=== PATIENT | female | born 2000 | race Caucasian/White ===

== ENCOUNTER 2020-02-22 17:10 | Emergency (ER) | payer BC, SELFPAY ==
[2020-02-22 17:16] VITALS: BP 114/69; PULSE 90; RESP 16; TEMP 37.2; O2SAT 98
--- NOTE | 2020-02-22 17:32 | ED.URI ---
HPI - URI/Sore Throat General Chief Complaint: Ear Stated Complaint: sore throat Time Seen by Provider: 02/22/20 17:22 Source: patient and RN notes reviewed Mode of arrival: ambulatory Limitations: no limitations History of Present Illness HPI Narrative: Patient presents today complaining of a 3-day history of sore throat, temperature up to 100, bilateral ear pain. Denies cough, congestion, rhinorrhea, nausea, vomiting, diarrhea, loss of taste or smell. Denies known sick contacts, including for COVID-19. Currently rates her sore throat 8?9/10. She has been taking Tylenol with some relief. Pain increases with swallowing. Denies shortness of breath or difficulty swallowing. History of frequent strep throat. MD elicited complaint: sore throat Related Data Allergies Allergy/AdvReac Type Severity Reaction Status Date / Time No Known Allergies Allergy Verified 02/22/20 17:20 Review of Systems Review of Systems: Narrative: CONSTITUTIONAL: Denies body aches, fever, chills, or sweats. EYES: Denies visual changes, redness, or discharge. ENT: Denies rhinorrhea, congestion. + Sore throat, bilateral ear pain CARDIOVASCULAR: Denies chest pain, palpitations, or edema. RESPIRATORY: Denies cough or dyspnea. GASTROINTESTINAL: Denies abdominal pain, nausea, vomiting, or diarrhea. GENITOURINARY: Denies dysuria or hematuria. SKIN: Denies rash, itching, or wounds. MUSCULOSKELETAL: Denies back pain, joint pain, or myalgia. NEUROLOGIC: Denies headache, numbness, tingling, or weakness. PSYCH: Denies depression or anxiety. [facility] Social History Social History Smoking status: Never smoker Alcohol intake: never Comments At time of signature, I have reviewed and agree with nursing past medical, surgical, social and family history unless otherwise noted. Please see nursing chart for further information. There is no relevant family history pertinent to the presenting complaint Exam Narrative: Exam Narrative: GENERAL: Well-appearing, well-nourished, and in no acute distress. HEAD: Normocephalic, atraumatic. EYES: EOMI. No redness or drainage. Conjunctivae normal. ENT: Mucous membranes pink and moist. Nares clear. No rhinorrhea. TMs normal bilaterally. Bilateral 3+ tonsils with moderate white exudate. Uvula midline. Mildly erythematous pharynx. NECK: Normal AROM. Supple. Bilateral tonsillar and anterior cervical chain lymphadenopathy CHEST: No respiratory distress. Clear to auscultation. HEART: Regular rate and rhythm. No murmur appreciated. Normal peripheral pulses. EXTREMITIES: Normal range of motion. No edema. SKIN: Warm, dry, no rash. Capillary refill normal. Normal skin turgor. NEURO: No focal deficits. Alert and oriented x3. Gait steady. PSYCH: Normal affect. No signs of depression or anxiety. Course Vital Signs Vital signs: Vital Signs Temperature 99 F 02/22/20 17:16 Pulse Rate 90 02/22/20 17:16 Respiratory Rate 16 02/22/20 17:16 Blood Pressure 114/69 02/22/20 17:16 Pulse Oximetry 98 02/22/20 17:16 Temperature 99 F 02/22/20 17:16 Pulse Rate 90 02/22/20 17:16 Respiratory Rate 16 02/22/20 17:16 Blood Pressure 114/69 02/22/20 17:16 Pulse Oximetry 98 02/22/20 17:16 Reviewed MDM - URI/Sore Throat Differential Diagnosis Differential diagnosis: Likely upper respiratory infection, otitis media, sinusitis, viral infection, pharyngitis and other (Tonsillitis, strep throat) Lab Data Attestation: I reviewed the patient's lab results. Labs: Strep Screen Positive Group A Strep *(Reference Range: Negative)* Critical Care Time Critical Care Time Critical Care Time: No Discharge Plan Discharge Clinical Impression: Strep throat Patient Disposition: Home, Self-Care Condition: Stable Instructions: Antibiotic Form, Strep Throat (DC) Additional Instructions: Your s
== END 2020-02-22 17:45 | disposition home or self-care (01) ==
PROVIDERS: Emergency Provider Nurse Practitioner; PCP Family Medicine
DX: J02.0 Streptococcal pharyngitis (principal)
CPT/HCPCS: 87880; 99213; G0463

== ENCOUNTER → 2022-07-07 15:51 | Outpatient (CLI) | payer OTHER, SELFPAY ==
--- NOTE | ~2022-07-07 | US_ITS ---
EXAMINATION: US abdomen complete DATE: 07/07/2022 16:47 INDICATION: Unspecified abdominal pain TECHNIQUE: Multiple grayscale and Doppler ultrasound images of the abdomen were obtained. COMPARISON: None available FINDINGS: The head and body of the pancreas are normal. The pancreatic tail is obscured by bowel gas. The liver is normal with normal echogenicity and echotexture. No surface nodularity. Normal hepatope carolyn flow in the main portal vein. There is a 6 mm gallbladder polyp. The gallbladder is otherwise nor mal with no abnormal wall thickening, pericholecystic fluid or stones. The normal common bile duct me asures 3 mm. There was no sonographic Ying sign. The visualized portions of the aorta and inferior vena cava are normal. The spleen is normal in appearance and measures 10 cm. The right kidney measures 8.9 x 4.5 x 4.6 cm. The left kidney measures 8.5 x 6 x 4.2 cm. The kidneys demonstrate normal parenchymal echogenicity. T here is no hydronephrosis. IMPRESSION: 1. No sonographic correlate for the patient's symptoms. 2. Gallbladder polyp. Reviewed, dictated and finalized at location B.
== END ==
PROVIDERS: PCP Family Medicine; Visit Provider Nurse Practitioner Family
DX: R10.9 Unspecified abdominal pain (principal); K82.4 Cholesterolosis of gallbladder
CPT/HCPCS: 76700

== ENCOUNTER → 2022-08-12 15:48 | Outpatient (CLI) | payer OTHER, SELFPAY ==
--- NOTE | ~2022-08-12 | CT_ITS ---
EXAMINATION: CT abdomen w con DATE: 08/12/2022 16:12 INDICATION: Left upper quadrant pain TECHNIQUE: Computed tomography (CT) of the abdomen and pelvis was performed with 100 cc Omnipaque 350 intravenous contrast. The dose-length product was 344.19 mGy-cm. Automated exposure control and iterative reconstruction technique were employed. COMPARISON: None. FINDINGS: Heart size normal. There is a 9 mm right middle lobe nodule at the pleural surface, image 1 . No significant pleural or pericardial effusion. The liver, spleen, adrenal glands and spleen are normal. Gallbladder is present. Nonobstructive bowel pattern. No free air or free fluid. No significant vascular abnormality. There is a retroaortic left renal vein. No lymphadenopathy. No significant bone or joint abnormality. IMPRESSION: 1. No acute abdominal abnormality. 2: Right middle lobe nodule measuring 9 mm. Follow-up low dose CT chest in 3 months recommended to a ssess stability. Reviewed, dictated and finalized at location B. IMPRESSION: 1. No acute abdominal abnormality. 2: Right middle lobe nodule measuring 9 mm. Follow-up low dose CT chest in 3 m [facility] recommended to assess stability.
== END ==
PROVIDERS: PCP Nurse Practitioner Family; Visit Provider Nurse Practitioner Family
DX: R10.12 Left upper quadrant pain (principal)
CPT/HCPCS: 74160; Q9967

== ENCOUNTER 2023-04-07 07:38 | Outpatient (CLI) | payer OTHER, SELFPAY ==
--- NOTE | ~2023-04-07 | NM_ITS ---
EXAMINATION: NM hepatobiliary wo pharm DATE: 04/07/2023 11:58 INDICATION: Right upper quadrant abdominal pain COMPARISON: CT dated 08/12/2022 TECHNIQUE: 4.6 mCi Tc-99m mebrofenin (Choletec) was administered intravenously. Scintigraphic images of the abdomen were obtained for one hour. At the 1 hour time point, the patient drank 8 oz Ensure, and imaging was continued for 60 minutes. Gallbladder ejection fraction was calculated by the technol ogist. FINDINGS: There is normal clearance of radiotracer from the blood pool. There is homogeneous tracer u ptake by the liver. Activity progresses to the bowel and gallbladder. The gallbladder ejection fract ion (GBEF) is 61%. Note that with this technique, normal GBEF >= 33%. IMPRESSION: 1. Normal hepatobiliary scan. Reviewed, dictated and finalized at location A. SCREENER
== END 2023-04-07 07:39 | disposition home or self-care (01) ==
PROVIDERS: PCP Family Medicine; Visit Provider Family Medicine
DX: R10.11 Right upper quadrant pain (principal)
CPT/HCPCS: 78226; A9537